=== PATIENT | female | born 1990 | race Two or more races ===

== ENCOUNTER 2024-09-15 09:45 | Emergency (ER) | payer OTHER ==
[~2024-09-15] VITALS: Ht 157.5 cm; Wt 61.2 kg
[2024-09-15] MEDS ORDERED: PRENA1 TRUE CO1 EACH (10:43)
[2024-09-15 10:45] VITALS: BP 145/79; O2SAT 100
[2024-09-15 12:35] LABS: HEMOGLOBIN 11.7 g/dL (12.0-15.00); MEAN CELL VOLUME 88.5 fL (80.00-100.00); MEAN CORPUSCULAR HEMOGLOBIN 29.5 pg (27.00-32.0); MEAN CORPUSCULAR HGB CONC 33.3 g/dl (32.0-36.0); PLATELET COUNT 278 K/uL (150-450); RED BLOOD COUNT 3.96 M/uL (4.00-6.00); RED CELL DISTRIBUTION WIDTH 13.3 % (11.5-14.5)
[2024-09-15 12:59] LABS: CALCIUM 8.9 mg/dL (8.5-10.1); CREATININE SERUM 0.51 mg/dL (0.55-1.02); GFR 138.04; POTASSIUM 3.88 mEq/L (3.5-5.1)
[2024-09-15 13:09] LABS: PH,URINE 7.5 (5.0-8.0); URINE APPEARANCE Clear; URINE BILIRRUBIN Negative (NEGATIVE); URINE BLOOD Large; URINE COLOR Yellow; URINE GLUCOSE Negative (NEGATIVE); URINE KETONE 15 (NEGATIVE); URINE LEUKOCYTE Negative; URINE NITRATE Negative; URINE PROTEIN Negative (NEGATIVE); URINE UROBILINOGEN 0.2 E.U./dl
[2024-09-15 13:10] LABS: URINE BACTERIA 103.2 uL (0.0-1933); URINE EPITHELIAL CELLS 4.1 uL (0.0-38.8); URINE RBC 1621.4 uL (0.0-20.8); URINE WBC 8.9 uL (0.0-23.2)
== END 2024-09-15 15:26 | disposition home or self-care (01) ==
LOC: ER 09:47
PROVIDERS: General Practice
DX: O20.8 Other hemorrhage in early pregnancy (principal); Z3A.08 8 weeks gestation of pregnancy; Z88.0 Allergy status to penicillin